=== PATIENT | female | born 1985 | race Caucasian/White ===

== ENCOUNTER 2020-03-31 11:36 | Day surgery (SDC) | payer OTHER ==
[~2020-03-31] VITALS: Ht 165.1 cm; Wt 104.5 kg
--- NOTE | 2020-03-31 12:24 | PHYS DOC ---
Past Medical History Past Medical History: Anxiety Past Surgical History: Other Additional Past Surgical Histo: VATS procedure, chest tube Smoking Status: Never Smoker Alcohol Use: Occasionally General Adult EDM: Chief Complaint: ANIMAL BITE HPI: HPI: Patient is a 34 year old female who presents to the emergency department with complaints of left fifth digit pain and limited range of motion after being bit by her dog this morning. She also complains of a puncture wound to her right fourth digit. Patient states that her dog has had all of its vaccinations. She reports that she was trying to break up a fight between her 3 dogs when she was bit. She denies any decreased sensation of the left or right hand. Review of Systems: Review of Systems: Constitutional: Denies fever or chills. [] HENT: Denies nasal congestion or sore throat. [] Respiratory: Denies cough or shortness of breath. [] Musculoskeletal: See HPI Integument: See HPI Neurologic: Denies headache, or sensory changes. [] Psychiatric: Denies depression or anxiety. [] Heart Score: Risk Factors: Risk Factors: DM, Current or recent (<one month) smoker, HTN, HLP, family history of CAD, obesity. Risk Scores: Score 0 - 3: 2.5% MACE over next 6 weeks - Discharge Home Score 4 - 6: 20.3% MACE over next 6 weeks - Admit for Clinical Observation Score 7 - 10: 72.7% MACE over next 6 weeks - Early Invasive Strategies Current Medications: Current Medications Medications (Trade) Dose Ordered Sig/Caitlyn Start Time Stop Time Status Last Admin Dose Admin Acetaminophen/ Hydrocodone Bitart (Lortab 5/325) 1 tab 1X ONCE 03/31/20 12:30 03/31/20 12:31 Diphtheria/ Tetanus/Acell Pertussis (ADACEL TDap SYRINGE) 0.5 ml ONCE ONCE 03/31/20 12:30 03/31/20 12:31 Lidocaine HCl (Xylocaine-Mpf 1% 2ml Vial) 6 ml 1X ONCE 03/31/20 12:30 03/31/20 12:31 Allergies: Allergies: Allergies Coded Allergies Type Severity Reaction Last Updated Verified No Known Drug Allergies 03/31/20 No Physical Exam: PE: Constitutional: Well developed, well nourished, no acute distress, non-toxic appearance. [] HENT: Normocephalic, atraumatic, bilateral external ears normal, nose normal. [] Eyes: PERRLA, EOMI, conjunctiva normal, no discharge. [] Neck: Normal range of motion, no stridor. [] Cardiovascular:Heart rate regular rhythm Lungs & Thorax: Respirations even and unlabored, no retractions, no respiratory distress Skin: Warm, dry, no erythema, no rash; bite wound to left lateral hand and bite/puncture wound to palmar aspect of right 4th digit between PIP and DIP [] Extremities: L hand: lateral TTP, limited extension of L 5th digit, No cyanosis; R hand 4th digit: ttp over the medial phalanx, full extension and flexion, sensation intact Neurologic: Alert and oriented X 3, no focal deficits noted. [] Psychologic: Affect normal, judgement normal, mood normal. [] Current Patient Data: Vital Signs: Vital Signs Date Time Temp Pulse Resp B/P (MAP) Pulse Ox O2 Delivery O2 Flow Rate FiO2 03/31/20 11:36 98.1 95 16 150/89 (109) 99 Room Air 98.1 EKG: EKG: [] Radiology/Procedures: Radiology/Procedures: PROCEDURE: HAND LEFT 3V 3 view left hand HISTORY: Pain AP lateral oblique views There is a comminuted fracture of the distal fifth carpal. This is mostly nondisplaced although there is a single fragment that has mild distraction. IMPRESSION: Acute traumatic fracture of the distal fifth metacarpal. [] Course & Med Decision Making: Course & Med Decision Making Pertinent Labs and Imaging studies reviewed. (See chart for details) 1230- Spoke with Dr. Candelario, he will take patient to the OR for treatment and cleansing of left 5th metacarpal open fx. Will order rapid COVID test. Pt's last PO was at 0900 today. 1535- pt to the OR [] Shawn Disclaimer: Shawn Disclaimer: This electronic medical record was generated, in whole or in part, using a voice recognition dictation system. Departure Departure Impression: Primary Impression: Open fracture metacarpal bone of finger Additional Impressions: Dog bite of left hand Qualified Codes: S61.452A - Open bite of left hand, initial encounter; W54.0XXA - Bitten by dog, initial encounter Dog bite of finger Qualified Codes: S61.259A - Open bite of unspecified finger without damage to nail, initial encounter; W54.0XXA - Bitten by dog, initial encounter Need for Tdap vaccination Disposition: HOME, SELF-CARE Condition: STABLE Referrals: NO PCP (PCP) VITOR CANDELARIO MD Justicifation of Admission Dx: Justifications for Admission: Justification of Admission Dx: N/A Fracture: Fracture KEELY FATIMA APRN Mar 31, 2020 12:24
--- NOTE | 2020-03-31 12:27 | RAD ---
3 view left hand HISTORY: Pain AP lateral oblique views There is a comminuted fracture of the distal fifth carpal. This is mostly nondisplaced although there is a single fragment that has mild distraction. IMPRESSION: Acute traumatic fracture of the distal fifth metacarpal. Electronically signed by: Ky Springer III, MD (03/31/2020 12:24 PM) [id number]
[2020-03-31] MEDS: LIDOCAINE 1% PF 2 ML VIAL. INJ ONE ×2 (12:30→12:31)
[2020-03-31] MEDS ORDERED: DIPH,PERTUSS(ACELL),TET VAC/PF 0.5 ML SYRINGE. VAX IM ONE (12:30)
[2020-03-31] MEDS ORDERED: HYDROcodone/APAP 5/325MG 1 TAB TABLET PO ONE (12:30)
--- NOTE | 2020-03-31 12:55 | RAD ---
Examination: FINGER(S) RIGHT History: Reason: dog bite on 4th digit on right hand / Spl. Instructions: / History: Comparison/Correlation: None Findings: Total of 3 images of the right fourth digit were obtained including a PA view of the hand. A ring is present about the fourth digit proximal phalanx limiting evaluation at this site. Joint spaces are normal. No displaced fracture or bone destruction. Soft tissues are grossly unremarkable. No degenerative changes. Impression: No suspicious process. Electronically signed by: Wayne Thomas MD (03/31/2020 12:52 PM) [id number]
[2020-03-31] MEDS ORDERED: MORPHINE SULFATE 4 MG/ML VIAL. IV ONE ×2 (13:00→15:00)
[2020-03-31] MEDS ORDERED: ONDANSETRON PF 4 MG/2 ML VIAL. IV ONE (13:00)
[2020-03-31] MEDS ORDERED: SUCCINYLCHOLINE 200 MG/10 ML VIAL. ONE (13:35)
[2020-03-31] MEDS ORDERED: ROCURONIUM 50 MG/5 ML VIAL. ONE (13:35)
[2020-03-31] MEDS ORDERED: PROPOFOL 10 MG/ML (20ML) VIAL. IV ONE (15:06)
[2020-03-31] MEDS ORDERED: FAMOTIDINE 20 MG/2 ML VIAL ONE (15:06)
[2020-03-31] MEDS ORDERED: DEXAMETHASONE SOD PHOS 20 MG/5 ML VIAL. ONE (15:06)
[2020-03-31] MEDS ORDERED: LIDOCAINE 2% PF 5 ML VIAL. ONE (15:06)
[2020-03-31] MEDS ORDERED: MIDAZOLAM HCL/PF 2 MG/2 ML VIAL. ONE (15:07)
[2020-03-31] MEDS ORDERED: fentaNYL PF VIAL 100 MCG/2 ML VIAL ONE (15:07)
[2020-03-31] MEDS ORDERED: PROCHLORPERAZINE 10 MG/2 ML VIAL. IV PRN (15:15)
[2020-03-31] MEDS ORDERED: ONDANSETRON PF 4 MG/2 ML VIAL. IV PRN (15:15)
[2020-03-31] MEDS ORDERED: MORPHINE SULFATE 2 MG/ML VIAL. IV PRN (15:15)
[2020-03-31] MEDS ORDERED: HYDROmorphone 2 MG/ML VIAL IV PRN (15:15)
[2020-03-31] MEDS ORDERED: fentaNYL PF VIAL 100 MCG/2 ML VIAL IV PRN (15:15)
[2020-03-31] MEDS ORDERED: ROPIVacaine 0.5% PF 20 ML VIAL. ONE (15:57)
[2020-03-31] MEDS ORDERED: BUPIVACAINE MPF 0.5% 30 ML VIAL. ONE (15:57)
[2020-03-31] MEDS ORDERED: SCOPOLAMINE 1.5MG PATCH. TD ONE ×2 (16:12→16:30)
[2020-03-31] MEDS: IV RINGERS,LACTATED 1000ML 1,000 ML IV SCH ×2 (16:15→21:05)
--- NOTE | 2020-03-31 16:38 | CONS ---
DATE OF CONSULTATION: 03/31/2020 ORTHOPEDIC EMERGENCY DEPARTMENT CONSULTATION AND PREOPERATIVE HISTORY AND PHYSICAL REQUESTING PHYSICIAN: Emergency Department physician. REASON FOR CONSULTATION: Open left hand fracture. HISTORY OF PRESENT ILLNESS: The patient is a 34-year-old female who tried to break up an altercation between her 2 dogs and got bit sustaining an open fracture of her left fifth metacarpal, also has a laceration of her right fourth digit as well. This happened this morning. She came in to the Emergency Department having eaten at about 9:00 a.m. and states that both of the dogs have all their vaccinations and she denies any loss of consciousness or other injury. PAST MEDICAL HISTORY: Significant for anxiety. PAST SURGICAL HISTORY: Significant for some type of lung procedure and a chest tube placement. ALLERGIES: She denies any allergies to medications. MEDICATIONS: List is reviewed. FAMILY HISTORY: Denies any significant family history. SOCIAL HISTORY: Denies smoking or drug use. Occasional social alcohol consumption. REVIEW OF SYSTEMS: Denies again any fever, chills, chest pain, shortness of breath, radiating pain up the extremities, focal weakness, numbness, tingling or any other joint injury or extremity injury aside from the two hands. PHYSICAL EXAMINATION: HEENT: Atraumatic, normocephalic. HEART: Regular rate and rhythm. LUNGS: Clear to auscultation bilaterally. ABDOMEN: Benign. EXTREMITIES: On examination of upper extremities, she has an oblique laceration over the dorsal aspect of her hand midpoint of the metacarpal on the fifth and she with pain can flex and extend the left fifth finger, but there does appear to be some rotation and gross deformity. She also has a laceration over the volar aspect PIP of the right fourth finger that needs reapproximation as well. There is really no significant evidence of flexor or extensor tenosynovitis at present, but she does have soreness with any movement of either finger and has clear open injuries and otherwise has intact motor function, distal pulses, sensation, reflexes, skin in both upper extremities throughout. IMAGING: X-rays show an approximately midshaft relatively transverse fracture of the fifth metacarpal shaft on the left hand. IMPRESSION: Open left fifth metacarpal fracture and a laceration of right ring finger from dog bite. TREATMENT PLAN: I went over with her the risk of infection associated with this open fracture and the recommendation of operative treatment with washing out the area and planned plate and screw fixation of the left fifth metacarpal and a planned repair of her laceration over the right ring finger. She is aware of the possibility of infection, nonhealing, nerve or blood vessel damage, continued pain, medical or other anesthetic complications among others and wishes to proceed with surgery, which will be conducted on an urgent basis because of the open fracture. VITOR NICKERSON MD DR: PERRY/jamie JOB#: [id number] / [id number]
[2020-03-31] MEDS ORDERED: CLINDAMYCIN 900MG PREMIX 50 ML IV ONE (16:45)
[2020-03-31] MEDS: fentaNYL PF VIAL 100 MCG/2 ML VIAL IV PRN ×3 (16:48→21:05)
[2020-03-31 17:18] LABS: PREG TEST PT QUAL NEGATIVE (NEG)
[2020-03-31] MEDS ORDERED: SEVOFLURANE > 120 MINUTES. IH ONE (19:26)
--- NOTE | 2020-03-31 20:00 | DISCH ---
DISCHARGE INSTRUCTIONS Condition on Discharge Condition on Discharge: Stable Activity After Discharge Activity Instructions for Disc: Other, see below (Gentle movement and grasp with right hand, gentle pinch with index finger and thumb on left) Bathing Instructions: Shower-keep dressing dry Diet after Discharge Diet after Discharge: Regular Wound Incision Care Wound/Incision Care: Keep wound elevated, Do not change dressing Contacting the after DC Call your doctor for: Concerns you may have Follow-Up Follow up with: Dr. Candelario 6 days Treatment/Equipment after DC Adaptive Equipment Issued: None VITOR CANDELARIO MD Mar 31, 2020 20:00
[2020-03-31] MEDS ORDERED: OXYC1TAB15 PO (20:03)
[2020-03-31] MEDS ORDERED: AMOX1TAB61 PO (20:03)
[2020-03-31] MEDS ORDERED: oxyCODONE/APAP 5/325 1 TAB TABLET PO ONE ×2 (20:15→20:30)
--- NOTE | 2020-03-31 20:57 | PDOC4 ---
Operative Note Operative Note Date of surgery: 03/31/2020 Preoperative diagnosis: Open fracture left fifth metacarpal shaft, laceration volar right ring finger Postoperative diagnosis: Same Operative procedure: Irrigation debridement operative reduction internal fixation left fifth metacarpal shaft fracture and closure laceration volar right ring finger Surgeon: Kodak Anesthesia: General Estimated blood loss: 20 cc Complications: None Operative indications: See my dictated orthopedic emergency department consultation for detailed operative indications. Operative text: Patient was identified procedure verified and after adequate amounts of general anesthesia were administered the left upper extremity was prepped and draped in standard sterile fashion with an upper arm tourniquet. After timeout was performed patient procedure identified and verified the tourniquet was inflated and the dorsal laceration was irrigated and debrided of devitalized skin subcutaneous tissue and laceration was extended distally and subperiosteal dissection carried out with further irrigation and a Andreas mini fragment plate was placed and with near anatomic reduction carried out a total of 4 screws were placed under fluoroscopic guidance with excellent fixation and episcopalian of the rotation of the digit which was confirmed by full flexion of the finger. Closure accomplished with nylon suture and mainly a mattress and simple fashion. Sterile dressings were applied followed by a ulnar gutter splint and fingers were noted to be warm pink following deflation of the tourniquet. Attention was then turned to the right upper extremity which was prepped and draped in standard sterile fashion and debridement of devitalized skin and subcutaneous tissue was carried out with thorough irrigation and closure with nylon suture. Tube gauze dressing was placed patient was returned to recovery room in stable condition having tolerated procedure well VITOR NICKERSON MD Mar 31, 2020 20:57
[2020-03-31 22:00] VITALS: BP 114/66
== END 2020-03-31 22:20 | disposition home or self-care (01) ==
LOC: ER 11:36 → SDC 16:42
PROVIDERS: ATTEND Orthopaedic Surgery
DX: S62.327A Displaced fracture of shaft of fifth metacarpal bone, left hand, initial encounter for closed fracture (principal); S61.214A Laceration without foreign body of right ring finger without damage to nail, initial encounter; Z79.899 Other long term (current) drug therapy; W54.0XXA Bitten by dog, initial encounter; Y93.89 Activity, other specified; Y92.89 Other specified places as the place of occurrence of the external cause; Y99.8 Other external cause status
CPT/HCPCS: 12001; 26615; 73130; 73140; 84703; 90471; 90715; A7015; C1713; J0330; J0780; J1100; J2250; J2270; J2405; J2704; J3010; J3490; J7120; U0003; J2795; A4461